=== PATIENT | male | born 1985 | race Caucasian/White ===

== ENCOUNTER 2018-10-02 08:43 | Emergency (ER) | payer OTHER ==
[~2018-10-02] VITALS: Ht 180.3 cm; Wt 109.9 kg
[2018-10-02 08:44] VITALS: BP 119/69
[2018-10-02] MEDS ORDERED: TYLETAB14 PO (10:14)
--- NOTE | 2018-10-02 10:14 | REP ---
RIGHT KNEE SERIES: Five views of the right knee are performed. There is no acute fracture or dislocation. There may be a small joint effusion. There is moderate spurring of the lateral patellar facet. IMPRESSION: No acute fracture or dislocation. Possible small joint effusion. Electronically Signed by Dino Arambula MD 10/02/2018 03:37 P
== END 2018-10-02 10:21 | disposition home or self-care (01) ==
LOC: M ED 08:43
DX: M25.461 Effusion, right knee (principal)

== ENCOUNTER 2019-01-22 12:33 | Emergency (ER) | payer OTHER ==
[~2019-01-22] VITALS: Ht 177.8 cm; Wt 104.5 kg
[~2019-01-22 12:33] MED LIST: TYLETAB14 PO
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
[2019-01-22] MEDS ORDERED: IBUP-1022 PO (13:53)
[2019-01-22] MEDS ORDERED: CYCL10TA PO (13:53)
[2019-01-22] MEDS ORDERED: CYCLOBENZAPRINE 10 MG TAB PO ONE (14:00)
[2019-01-22] MEDS ORDERED: IBUPROFEN 600 MG TAB PO ONE (14:00)
[2019-01-22 14:20] VITALS: BP 122/71
== END 2019-01-22 14:29 | disposition home or self-care (01) ==
LOC: EDBD 12:33 → M ED 12:33
DX: S00.03XA Contusion of scalp, initial encounter (principal); S33.5XXA Sprain of ligaments of lumbar spine, initial encounter; V43.52XA Car driver injured in collision with other type car in traffic accident, initial encounter; Y92.9 Unspecified place or not applicable; Y93.9 Activity, unspecified; Y99.9 Unspecified external cause status

== ENCOUNTER → 2022-06-14 | Outpatient (REF) ==
[~2022-06-14] MED LIST changes: +CYCL-707 PO; +IBUP-1022 PO
== END ==
LOC: M PLAIMG 15:16
PROVIDERS: ATTEND Internal Medicine
DX: Z11.52 Encounter for screening for COVID-19 (principal)

== ENCOUNTER → 2022-08-02 | Outpatient (CLI) | payer OTHER ==
[~2022-08-02] MED LIST changes: +**SFHN** LIDOCAINE 1% MDV 20ML VIAL ONE; +ISOVUE-300 61% 100ML VIAL ONE; +PROHANCE 279.3MG/ML 5ML VIAL ONE
== END ==
LOC: M PLAIMG 13:43
PROVIDERS: ATTEND Family Medicine
DX: M25.312 Other instability, left shoulder (principal)